=== PATIENT | female | born 1950 | race Caucasian/White ===

== ENCOUNTER → 2024-06-22 11:02 | Outpatient (REF) | payer MEDICARE, OTHER, SELFPAY | LOC: WDC 11:02 | PROVIDERS: ATTENDING PHYSICIAN Family Medicine | DX: Z12.31 Encounter for screening mammogram for malignant neoplasm of breast (principal) | CPT/HCPCS: 77063; 77067 ==

== ENCOUNTER → 2024-10-05 13:21 | Outpatient (REF) | payer MEDICARE, OTHER, SELFPAY | LOC: RCS 13:21 | PROVIDERS: ATTENDING PHYSICIAN Nuclear Medicine Nuclear Cardiology; FAMILY PHYSICIAN Family Medicine | DX: I50.21 Acute systolic (congestive) heart failure (principal); I48.0 Paroxysmal atrial fibrillation; I63.89 Other cerebral infarction | CPT/HCPCS: 93306 ==

== ENCOUNTER → 2024-10-08 07:55 | Outpatient (REF) | payer MEDICARE, OTHER, SELFPAY | LOC: PAVMRI 07:55 | PROVIDERS: ATTENDING PHYSICIAN Family Medicine | DX: E27.9 Disorder of adrenal gland, unspecified (principal); K86.2 Cyst of pancreas | CPT/HCPCS: 74183; A9575 ==

== ENCOUNTER → 2025-06-28 10:54 | Outpatient (REF) | payer MEDICARE, OTHER, SELFPAY | LOC: WDC 10:54 | PROVIDERS: ATTENDING PHYSICIAN Family Medicine | DX: Z12.31 Encounter for screening mammogram for malignant neoplasm of breast (principal) | CPT/HCPCS: 77063; 77067 ==

== ENCOUNTER 2025-07-01 06:25 | Day surgery (SDC) | payer MEDICARE, OTHER, SELFPAY ==
[2025-07-01 09:26] LABS: Glucose - Point of Care 132 mg/dl (70-99)
== END 2025-07-01 11:34 | disposition home or self-care (01) ==
LOC: GI 06:25
PROVIDERS: ATTENDING PHYSICIAN Internal Medicine Gastroenterology
DX: D12.0 Benign neoplasm of cecum (principal); K57.30 Diverticulosis of large intestine without perforation or abscess without bleeding; D12.8 Benign neoplasm of rectum; K64.8 Other hemorrhoids; Z80.0 Family history of malignant neoplasm of digestive organs; Z86.0100 Personal history of colon polyps, unspecified; R12 Heartburn
CPT/HCPCS: 45385; 45380; 43235; 82962; 88305

== ENCOUNTER 2025-10-06 09:06 | Day surgery (SDC) | payer MEDICARE, OTHER, SELFPAY ==
[2025-10-06 11:12] LABS: Glucose - Point of Care 116 mg/dl (70-99)
== END 2025-10-06 12:35 | disposition home or self-care (01) ==
LOC: CATH 09:06
PROVIDERS: ATTENDING PHYSICIAN Internal Medicine Cardiovascular Disease; FAMILY PHYSICIAN Family Medicine; OTHER PHYSICIAN Nuclear Medicine Nuclear Cardiology
DX: I48.91 Unspecified atrial fibrillation (principal); Z79.01 Long term (current) use of anticoagulants; E11.9 Type 2 diabetes mellitus without complications; I10 Essential (primary) hypertension; Z86.73 Personal history of transient ischemic attack (TIA), and cerebral infarction without residual deficits; Z79.82 Long term (current) use of aspirin; Z79.899 Other long term (current) drug therapy; Z79.85 Long-term (current) use of injectable non-insulin antidiabetic drugs; Z79.84 Long term (current) use of oral hypoglycemic drugs
CPT/HCPCS: 82962; 92960; 93005